=== PATIENT | male | born 1965 | race Caucasian/White ===

== ENCOUNTER 2017-04-07 08:57 | Day surgery (SDC) | payer OTHER ==
[~2017-04-07 08:57] MED LIST: Lactated Ringers 1,000 ML IV SCH; Sodium Chloride 0.9% 10 ML Syringe FLUSH PRN
[2017-04-07] MEDS ORDERED: Lactated Ringers 1,000 ML IV SCH (09:00)
[2017-04-07] MEDS ORDERED: Sodium Chloride 0.9% 10 ML Syringe FLUSH PRN (09:00)
[2017-04-07] MEDS ORDERED: ceFAZolin 2 GM in Premix Bag 1 BAG IV ONE (10:00)
[2017-04-07] MEDS ORDERED: Lidocaine 2% 100 MG/5 ML Syringe IVPUSH ONE (11:00)
[2017-04-07] MEDS ORDERED: Midazolam 1 MG/ML 2 ML SDV IV ONE (11:00)
[2017-04-07] MEDS ORDERED: fentaNYL 100 MCG/2 ML SDV IV ONE (11:00)
[2017-04-07] MEDS ORDERED: Ketorolac 30 MG/ML SDV IVPUSH ONE (11:00)
[2017-04-07] MEDS ORDERED: Atropine 0.4 MG/ML SDV IVPUSH ONE (11:00)
[2017-04-07] MEDS ORDERED: ePHEDrine 50 MG/ML SDV IV ONE (11:00)
[2017-04-07] MEDS ORDERED: Propofol 200 MG/20 ML SDV IV ONE (11:00)
[2017-04-07] MEDS ORDERED: Ondansetron 4 MG/2 ML SDV IVPUSH ONE (11:00)
[2017-04-07] MEDS ORDERED: Rocuronium 50 MG/5 ML Vial IV ONE (11:00)
[2017-04-07] MEDS ORDERED: Neostigmine Methylsulfate 1 MG/ML 5 ML Syringe IV ONE (11:00)
[2017-04-07] MEDS ORDERED: Lactated Ringers 1,000 ML IV ONE (11:00)
[2017-04-07] MEDS ORDERED: HYDROmorphone 2 MG/ML SDV IV ONE (11:00)
[2017-04-07] MEDS ORDERED: Bupivacaine 0.5%/EPINEPHrine 1:200,000 50 ML MDV ONE (11:25)
[2017-04-07] MEDS ORDERED: ceFAZolin 1 GM Vial ONE (11:45)
--- NOTE | 2017-04-07 12:26 | HP ---
ADMISSION DATE: 04/07/2017 HISTORY OF PRESENT ILLNESS: This 51-year-old male presents for a repair of a ventral incisional hernia. He underwent a colon resection in 2007 for cancer. There has been no evidence of cancer recurrence, but the patient has been developing some symptoms related to bowel involvement with this hernia. With these symptoms, he now wishes to have this repaired. PAST MEDICAL HISTORY: Also includes diagnosis of hypertension. CURRENT MEDICATIONS: Include lisinopril/hydrochlorothiazide 10/12.5 daily, pravastatin 40 mg a day, Flexeril p.r.n., and metformin 500 mg daily. ALLERGIES: He is allergic to amoxicillin and valsartan. SOCIAL HISTORY: He does not smoke. FAMILY HISTORY: Unremarkable. REVIEW OF SYSTEMS: Shows that recently he has been feeling well except for some intermittent crampy abdominal pain related to the bowel involvement with the hernia and also a more consistent feeling of early satiety. PHYSICAL EXAMINATION: VITAL SIGNS: Temperature is 98.6, pulse 64, blood pressure is 137/90, weight is 266 pounds. GENERAL: The patient is an adult male. He is currently in no acute distress. HEENT: Head is normocephalic. There is no scleral icterus. There are no cervical masses. No carotid bruits are heard. HEART: Regular without murmur. LUNGS: Clear. Breath sounds are equal. There is no wheezing. ABDOMEN: Soft. There are no palpable masses. No hepatic or splenic enlargement. No tenderness. The patient does have diffuse weakness of the midline fascia underneath his midline surgical incision. EXTREMITIES: Show no edema or calf tenderness. IMPRESSION: 1. Ventral incisional hernia with history of bowel involvement. 2. Hypertension. PLAN: Laparoscopic repair of ventral incisional hernia. INFORMED CONSENT: I have discussed carefully on multiple occasions the proposed operative procedure with this patient. I reviewed with him the indications and the options of repair, both open and laparoscopic. I have also discussed the risks of these procedures as well as the anticipated recovery. The patient has decided he would like to proceed with an attempted laparoscopic repair of this ventral hernia. He has been advised that there is a possibility that this still may need to be converted to an open repair. He appears to understand the discussion. His questions were answered and he agrees to proceed today. /[id number] TORY/WILLIAN
--- NOTE | 2017-04-07 13:52 | PCM.OPNOTE ---
- General Post-Op/Procedure Note Date of Surgery/Procedure: 04/07/17 Operative Procedure(s): Laproscopic Repair of Incarcerated Ventral Incisional Hernia. Lysis of Intra-abdominal adhesions Findings: Incarcerated Ventral Incisional Hernia and extensive small bowel adhesions Pre Op Diagnosis: Ventral Incisional Hernia Post-Op Diagnosis: Incarcerated Ventral Incisional Hernia. Intra-abdominal Adhesions Anesthesia Technique: General ET tube Primary Surgeon: Waqas Casanova School Guard: Mundo West Pathology: none Output, Urine Amount: 0 EBL in mLs: 25 Complications: None Condition: Good
[2017-04-07] MEDS ORDERED: Acetaminophen/HYDROcodone 325-5 MG Tab PO PRN ×2 (13:59)
[2017-04-07] MEDS ORDERED: Ondansetron 4 MG/2 ML SDV IVPUSH PRN (13:59)
[2017-04-07] MEDS: Morphine 2 MG/ML Syringe IVPUSH PRN ×2 (17:21→18:21)
[2017-04-07] MEDS: Lactated Ringers 1,000 ML IV SCH (17:34)
[2017-04-07] MEDS: Ketorolac 30 MG/ML SDV IVPUSH SCH ×2 (18:12→23:50)
[2017-04-08] MEDS: Lactated Ringers 1,000 ML IV SCH (04:08)
[2017-04-08] MEDS: Ketorolac 30 MG/ML SDV IVPUSH SCH (05:49)
[2017-04-08] MEDS ORDERED: Hydrochlorothiazide/Lisinopril 25-20 MG Tab PO SCH (09:00)
[2017-04-08] MEDS ORDERED: metFORMIN 500 MG Tab.ER PO SCH (09:00)
--- NOTE | 2017-04-08 09:24 | PCM.SURGPN ---
- General Info Date of Service: 04/08/17 Date of Surgery/Procedure: 04/07/17 POD#: 1 Post-Op Diagnosis: Incarcerated Ventral Incisional Hernia Functional Status: Reports: ambulating, urinating (initially had urinary retention but was able to void large amount at about midnight and now is voiding satisfactorily) - Review of Systems Pulmonary: Reports: no symptoms Gastrointestinal: Reports: Other (appetite still poor and only taking small amounts PO). Denies: Nausea, Vomiting Musculoskeletal: Reports: no symptoms. Denies: leg pain - Patient Data Vitals - most recent: Last Vital Signs Temp 98.1 F 04/08/17 08:30 Pulse 75 04/08/17 04:00 Resp 18 04/08/17 08:30 BP 130/83 04/08/17 08:55 Pulse Ox 94 L 04/08/17 08:30 Weight - most recent: 267 lb I&O - last 24 hours: Intake & Output 04/07/17 04/08/17 04/08/17 22:59 06:59 14:59 Intake Total 992 1057 Output Total 0 2350 Balance 992 -1293 Lab Results last 24 hrs: Laboratory Results - last 24 hr 04/07/17 Range/Units 10:12 POC Glucose 103 (80-116) mg/dL Med Orders - Current: Current Medications Hydrocodone Bitart/Acetaminophen ([place] 325-5 Mg) 1 tab PO Q4H PRN PRN Reason: Pain (mild 1-3) Last Admin: 04/08/17 08:56 Dose: 1 tab Hydrocodone Bitart/Acetaminophen ([place] 325-5 Mg) 2 tab PO Q4H PRN PRN Reason: Pain (moderate 4-6) Lisinopril/HCTZ (Lisinopril-Hctz 20-25 Mg) 1 tab PO DAILY [facility] Last Admin: 04/08/17 08:55 Dose: 1 tab Lactated Ringer's (Ringers, Lactated) 1,000 mls @ 50 mls/hr IV ASDIRECTED JERRY Last Admin: 04/08/17 04:08 Dose: 100 mls/hr Ketorolac Tromethamine (Toradol) 10 mg PO Q6H [facility] Stop: 04/13/17 09:31 Metformin HCl (Glucophage Xr) 500 mg PO DAILY [facility] Last Admin: 04/08/17 08:55 Dose: 500 mg Morphine Sulfate (Morphine) 2 mg IVPUSH Q1H PRN PRN Reason: Pain (severe 7-10) Last Admin: 04/07/17 18:21 Dose: 2 mg Ondansetron HCl (Zofran) 4 mg IVPUSH Q6H PRN PRN Reason: Nausea/Vomiting Last Admin: 04/07/17 18:19 Dose: 4 mg Sodium Chloride (Saline Flush) 10 ml FLUSH ASDIRECTED PRN PRN Reason: Keep Vein Open Discontinued Medications Bupivacaine HCl/Epinephrine Bitart ([place] 0.5%/Epinephrine 1:200,000) 20 ml .XX .STK-MED ONE Stop: 04/07/17 11:26 Last Admin: 04/07/17 11:25 Dose: 20 ml Cefazolin Sodium (Ancef) 1 gm .XX .STK-MED ONE Stop: 04/07/17 11:46 Last Admin: 04/07/17 11:45 Dose: 1 gm Lactated Ringer's (Ringers, Lactated) 1,000 mls @ 125 mls/hr IV ASDIRECTED [facility] Cefazolin Sodium/Dextrose 2 gm (/ Premix) 50 mls @ 100 mls/hr IV ONETIME ONE Stop: 04/07/17 10:29 Last Admin: 04/07/17 11:03 Dose: 100 mls/hr Lactated Ringer's (Ringers, Lactated) 1,000 mls @ 125 mls/hr IV ASDIRECTED [facility] Last Admin: 04/07/17 09:53 Dose: 125 mls/hr Cefazolin Sodium 1,000 mg/ (Sodium Chloride) 50 mls @ 200 mls/hr IV Q8H [facility] Stop: 04/08/17 09:14 Last Admin: 04/08/17 08:55 Dose: 200 mls/hr Ketorolac Tromethamine (Toradol) 30 mg IVPUSH Q6H [facility] Last Admin: 04/08/17 05:49 Dose: 30 mg Sodium Chloride (Saline Flush) 10 ml FLUSH ASDIRECTED PRN PRN Reason: Keep Vein Open - Exam Wound/Incisions: healing well General: alert, oriented Lungs: Normal respiratory effort Extremities: no edema, no tenderness/swelling - Problem List Review Problem List Initiated/Reviewed/Updated: Yes - My Orders Last 24 Hours: Active Orders 24 hr Category Date Time Status Patient Status [ADT] Routine ADT 04/07/17 14:00 Active Ambulate [RC] QSHIFT Care 04/07/17 13:59 Active Antiembolic Devices [RC] QSHIFT Care 04/07/17 14:03 Active Intake and Output [RC] 06,14,22 Care 04/07/17 14:01 Active Oxygen Therapy [RC] PRN Care 04/07/17 14:00 Active RT Incentive Spirometry [RC] Q1HWA Care 04/07/17 13:59 Active VTE/DVT Education [RC] Click to Edit Care 04/07/17 14:03 Active Vital Signs [RC] 00,04,08,12,16,20 Care 04/07/17 14:00 Active Full Liquid Diet [DIET] Diet 04/08/17 Breakfast Ordered Acetaminophen/HYDROcodone [[place] 325-5 MG] Med 04/07/17 13:59 Active 1 tab PO Q4H PRN Acetaminophen/HYDROcodone [[place] 325-5 MG] Med 04/07/17 13:59 Active 2 tab PO Q4H PRN Hydrochlorothiazide/Lisinopril [Lisinopril-HCTZ 20-25 Med 04/08/17 09:00 Active MG] 1 tab PO DAILY Ketorolac [Toradol] Med 04/08/17 09:30 Ordered 10 mg PO Q6H Lactated Ringers [Ringers, Lactated] 1,000 ml Med 04/07/17 14:00 Active IV ASDIRECTED Morphine Med 04/07/17 13:59 Active 2 mg IVPUSH Q1H PRN Ondansetron [Zofran] Med 04/07/17 13:59 Active 4 mg IVPUSH Q6H PRN Sodium Chloride 0.9% [Saline Flush] Med 04/07/17 09:00 Active 10 ml FLUSH ASDIRECTED PRN metFORMIN [Glucophage XR] Med 04/08/17 09:00 Active 500 mg PO DAILY DVT/VTE Prophylaxis Reflex [OM.PC] Per Unit Routine Oth 04/07/17 14:03 Ordered Peripheral IV Insertion Adult [OM.PC] Routine Oth 04/07/17 09:00 Ordered Sequential Compression Device [OM.PC] Routine Oth 04/07/17 09:00 Ordered Sequential Compression Device [OM.PC] Routine Oth 04/07/17 13:59 Ordered Medication Orders Hydrocodone Bitart/Acetaminophen ([place] 325-5 Mg) 1 tab PO Q4H PRN PRN Reason: Pain (mild 1-3) Last Admin: 04/08/17 08:56 Dose: 1 tab Hydrocodone Bitart/Acetaminophen ([place] 325-5 Mg) 2 tab PO Q4H PRN PRN Reason: Pain (moderate 4-6) Lisinopril/HCTZ (Lisinopril-Hctz 20-25 Mg) 1 tab PO DAILY [facility] Last Admin: 04/08/17 08:55 Dose: 1 tab Lactated Ringer's (Ringers, Lactated) 1,000 mls @ 50 mls/hr IV ASDIRECTED [facility] Last Admin: 04/08/17 04:08 Dose: 100 mls/hr Infusion: 04/08/17 03:34 Dose: 100 mls/hr Admin: 04/07/17 17:34 Dose: 100 mls/hr Ketorolac Tromethamine (Toradol) 10 mg PO Q6H [facility] Stop: 04/13/17 09:31 Metformin HCl (Glucophage Xr) 500 mg PO DAILY [facility] Last Admin: 04/08/17 08:55 Dose: 500 mg Morphine Sulfate (Morphine) 2 mg IVPUSH Q1H PRN PRN Reason: Pain (severe 7-10) Last Admin: 04/07/17 18:21 Dose: 2 mg Admin: 04/07/17 17:21 Dose: 2 mg Ondansetron HCl (Zofran) 4 mg IVPUSH Q6H PRN PRN Reason: Nausea/Vomiting Last Admin: 04/07/17 18:19 Dose: 4 mg Sodium Chloride (Saline Flush) 10 ml FLUSH ASDIRECTED PRN PRN Reason: Keep Vein Open - Assessment Assessment (Free Text/Narrative):: POD #1 Repair Ventral Incisional Hernia Still having a lot of pain and poor oral intake - Plan Plan (Free Text/Narrative):: Slow IV Trial of diet advancement change torodal to PO
[2017-04-08] MEDS ORDERED: Ketorolac 10 MG Tab PO SCH (12:00)
--- NOTE | 2017-04-08 15:28 | PCM.PN ---
- General Info Date of Service: 04/08/17 Admission Dx/Problem (Free Text): Laproscopic Repair of Incarcerated Ventral Incisional Hernia Functional Status: Reports: pain controlled (now improved and tolerating well on oral agents), tolerating diet (tolerating light diet well) - Review of Systems Gastrointestinal: Denies: Nausea, Vomiting Genitourinary: Reports: other (voiding well) - Patient Data Vitals - most recent: Last Vital Signs Temp 97.7 F 04/08/17 11:42 Pulse 78 04/08/17 09:00 Resp 18 04/08/17 11:42 BP 128/78 04/08/17 11:42 Pulse Ox 94 L 04/08/17 11:42 Weight - most recent: 267 lb I&O - last 24 hours: Intake & Output 04/08/17 04/08/17 04/08/17 06:59 14:59 22:59 Intake Total 1057 860 Output Total 2229 6815 Balance -1292 Med Orders - Current: Current Medications Hydrocodone Bitart/Acetaminophen ([place] 325-5 Mg) 1 tab PO Q4H PRN PRN Reason: Pain (mild 1-3) Last Admin: 04/08/17 08:56 Dose: 1 tab Hydrocodone Bitart/Acetaminophen ([place] 325-5 Mg) 2 tab PO Q4H PRN PRN Reason: Pain (moderate 4-6) Lisinopril/HCTZ (Lisinopril-Hctz 20-25 Mg) 1 tab PO DAILY [facility] Last Admin: 04/08/17 08:55 Dose: 1 tab Lactated Ringer's (Ringers, Lactated) 1,000 mls @ 50 mls/hr IV ASDIRECTED [facility] Last Admin: 04/08/17 04:08 Dose: 100 mls/hr Ketorolac Tromethamine (Toradol) 10 mg PO Q6H [facility] Stop: 04/13/17 12:01 Last Admin: 04/08/17 11:51 Dose: 10 mg Metformin HCl (Glucophage Xr) 500 mg PO DAILY [facility] Last Admin: 04/08/17 08:55 Dose: 500 mg Morphine Sulfate (Morphine) 2 mg IVPUSH Q1H PRN PRN Reason: Pain (severe 7-10) Last Admin: 04/07/17 18:21 Dose: 2 mg Ondansetron HCl (Zofran) 4 mg IVPUSH Q6H PRN PRN Reason: Nausea/Vomiting Last Admin: 04/07/17 18:19 Dose: 4 mg Sodium Chloride (Saline Flush) 10 ml FLUSH ASDIRECTED PRN PRN Reason: Keep Vein Open Discontinued Medications Bupivacaine HCl/Epinephrine Bitart (Marcaine 0.5%/Epinephrine 1:200,000) 20 ml .XX .STK-MED ONE Stop: 04/07/17 11:26 Last Admin: 04/07/17 11:25 Dose: 20 ml Cefazolin Sodium (Ancef) 1 gm .XX .STK-MED ONE Stop: 04/07/17 11:46 Last Admin: 04/07/17 11:45 Dose: 1 gm Lactated Ringer's (Ringers, Lactated) 1,000 mls @ 125 mls/hr IV ASDIRECTED [facility] Cefazolin Sodium/Dextrose 2 gm (/ Premix) 50 mls @ 100 mls/hr IV ONETIME ONE Stop: 04/07/17 10:29 Last Admin: 04/07/17 11:03 Dose: 100 mls/hr Lactated Ringer's (Ringers, Lactated) 1,000 mls @ 125 mls/hr IV ASDIRECTED [facility] Last Admin: 04/07/17 09:53 Dose: 125 mls/hr Cefazolin Sodium 1,000 mg/ (Sodium Chloride) 50 mls @ 200 mls/hr IV Q8H [facility] Stop: 04/08/17 09:14 Last Admin: 04/08/17 08:55 Dose: 200 mls/hr Ketorolac Tromethamine (Toradol) 30 mg IVPUSH Q6H [facility] Last Admin: 04/08/17 05:49 Dose: 30 mg Sodium Chloride (Saline Flush) 10 ml FLUSH ASDIRECTED PRN PRN Reason: Keep Vein Open - Exam Abdomen: soft Wound/Incisions: healing well, no drainage. No: erythema - Problem List Review Problem List Initiated/Reviewed/Updated: Yes - My Orders Last 24 Hours: My Active Orders 04/08/17 09:00 Hydrochlorothiazide/Lisinopril [Lisinopril-HCTZ 20-25 MG] 1 tab PO DAILY metFORMIN [Glucophage XR] 500 mg PO DAILY 04/08/17 12:00 Ketorolac [Toradol] 10 mg PO Q6H 04/08/17 15:25 Ready for Discharge [RC] PER UNIT ROUTINE 04/08/17 Breakfast Full Liquid Diet [DIET] - Assessment Assessment:: Doing well post op hernia repair - Plan Plan:: Discharge RTC 6 days
[2017-04-08 16:22] VITALS: BP 141/84
--- NOTE | 2017-04-10 10:40 | OR ---
DATE OF OPERATION: 04/07/2017 SURGEON: Waqas Casanova MD PROMOTIONS ASSISTANT: Mundo West MD. [employer] Supervisor necessary for help with retraction and dissection, as well as efficiency. PREOPERATIVE DIAGNOSIS: Ventral incisional hernia. POSTOPERATIVE DIAGNOSES: Incarcerated ventral incisional hernia and intraabdominal adhesions. OPERATION PERFORMED: Laparoscopic repair of incarcerated ventral incisional hernia and lysis of intraabdominal adhesions. INDICATIONS FOR SURGERY: This 51-year-old male, who has had a previous colon resection for carcinoma 9 years ago, has developed a hernia along his incision which has some small bowel involvement which is symptomatic. He comes now for elective repair. FINDINGS: In the upper abdomen to the left of the midline, the patient has a distinct fascial defect approximately 5 cm in size. Incarcerated in this defect is a loop of small bowel, which is causing some kinking of the bowel but does not appear to have caused any vascular compromise. There are extensive adhesions of small bowel to the anterior abdominal wall along the midline in the upper abdomen and many of these adhesions are dense. The bowel, however, appears of good quality. No other intraabdominal lesions are seen, specifically no evidence of metastatic disease was identified. In addition to the distinct defect to the left of the midline, the patient has some generalized weakness along the midline of the incision, including an another diffuse weakening at the level of the umbilicus. NARRATIVE: The patient was taken to the operating room. He was given general endotracheal anesthesia. The abdomen was sterilely prepped and draped. The abdominal cavity was entered laparoscopically via an incision in the right upper quadrant, under direct visualization using a Visiport trocar and under direct visualization of the laparoscopic camera. Once peritoneal cavity had been safely entered, pneumoperitoneum to a pressure of 15 mmHg was achieved with carbon dioxide. A 5 mm trocar was then placed in the right lower quadrant and another 5 mm trocar was placed under direct visualization in the left lower quadrant. These areas could be visualized, but the left upper quadrant was obscured by the densely adherent small bowel. Prolonged dissection was then taken, estimated at over 1 hour, to sharply dissect the small bowel off the anterior abdominal wall. This was performed using careful sharp and blunt dissection, all the while preserving the small bowel, and there was no evidence of any injury to this small bowel during this dissection. The dissection was especially tedious in the area of the hernia, where a loop of small bowel was incarcerated in the hernia itself. But with careful traction and sharp dissection, eventually all the bowel was able to be freed from the anterior abdominal wall and assurance was made of no point of obstruction. After assessing the size and location of the hernia and fascial defects, a laparoscopic piece of Composix mesh is selected measuring 10 x 8 inches in size. Retraction sutures were placed on the four axes of the mesh, and the mesh was soaked in Ancef and saline solution. The mesh was then placed intra-abdominally and unfolded and positioned by bringing the four axes sutures out through the abdominal wall holding the mesh in position, providing good coverage over the left-sided hernia defect, as well as the midline incision from xiphoid to the lower mid abdomen. Once in good position, the mesh was secured to the anterior abdominal wall with closely spaced outer row of absorbable tacks placed around the periphery of the mesh. A more widely spaced inner row and central tack are also used to reinforce the mesh attachment to the anterior abdominal wall and this secured the mesh providing good coverage with adequate margins over all the hernia defects and areas of fascial weakness. Examination showed no evidence of any complications. The fascia of the largest trocar site was closed with a 0 Vicryl suture using a port closure device. Pneumoperitoneum was evacuated and all the trocars were removed under direct visualization. The incisions were irrigated, and then the skin incisions are approximated with interrupted 4-0 Vicryl in a subcuticular stitch, Steri-Strips and Benzoin. Antibiotic ointment and sterile dressings were placed. The patient was then awakened, extubated, and taken from the operating room in satisfactory condition. ESTIMATED BLOOD LOSS: 25 mL. COMPLICATIONS: None. PROGNOSIS: Good. /[id number] 2015 TORY/WILLIAN
== END 2017-04-08 16:40 | disposition home or self-care (01) ==
LOC: FB.SDS 08:57 → FB.MS 14:52 → FB.SDS 04-08 16:40
PROVIDERS: ATTEND Surgery
DX: K43.0 Incisional hernia with obstruction, without gangrene (principal); I10 Essential (primary) hypertension; Z85.038 Personal history of other malignant neoplasm of large intestine; Z90.49 Acquired absence of other specified parts of digestive tract; Z88.1 Allergy status to other antibiotic agents; Z88.8 Allergy status to other drugs, medicaments and biological substances; Z79.899 Other long term (current) drug therapy
CPT/HCPCS: 49655; 82962; 94150; A9270; C1781; J0131; J0461; J0690; J1170; J1885; J2250; J2270; J2405; J2704; J3010; J7050; J7120

== ENCOUNTER 2017-04-19 21:25 | Observation (INO) | payer OTHER ==
[2017-04-19] MEDS ORDERED: Sodium Chloride 0.9% 10 ML Syringe FLUSH PRN (22:29)
[2017-04-19] MEDS ORDERED: Morphine 4 MG/ML Syringe IVPUSH ONE (22:30)
[2017-04-19] MEDS ORDERED: Ondansetron 4 MG/2 ML SDV IVPUSH ONE (22:30)
[2017-04-19] MEDS ORDERED: Ketorolac 30 MG/ML SDV IVPUSH ONE (22:30)
--- NOTE | 2017-04-19 22:39 | EDM.PDOC ---
ED HPI GENERAL MEDICAL PROBLEM - General Chief Complaint: Gastrointestinal Problem Stated Complaint: THROWING UP AND UNABLE TO EAT Time Seen by Provider: 04/19/17 22:00 Source of Information: Reports: Patient History Limitations: Reports: No Limitations - History of Present Illness INITIAL COMMENTS - FREE TEXT/NARRATIVE: c/o upper abd pain x 2d increasing upper abd pain x 2d, cramping, dec'd appetite, now with N/V tonight, small BMs, does not think he is constipated, not able to work as a [employer], no f/ c/d had 12" colon removed 9y ago for colon cancer, 2w ago on 04/07 he had an incarcerated ventral hernia repaired by Dr Casanova, had done well until 2d ago, has apt with Dr Reid in 2d, "could not wait that long," here with his no other abd surgery had 11 lb wt loss in past 2w emesis is green abdomen Pain Score (Numeric/FACES): 6 - Related Data Allergies Allergy/AdvReac Type Severity Reaction Status Date / Time amoxicillin [Amoxicillin] Allergy Rash Verified 04/19/17 21:42 valsartan [From Diovan] Allergy Rash Verified 04/19/17 21:42 Home Meds: Home Meds Pravastatin Sodium 40 mg PO DAILY 01/18/14 [History] Fluticasone Propionate [Flonase] 1 - 2 sprays NASBOTH DAILY 04/07/17 [History] Hydrochlorothiazide/Lisinopril [Lisinopril-HCTZ 20-25 MG] 1 tab PO DAILY [History] Montelukast [Singulair] 10 mg PO BEDTIME 04/07/17 [History] metFORMIN [Glucophage XR] 500 mg PO DAILY 04/07/17 [History] Hydrocodone/Acetaminophen [[place] 5-325] 1 - 2 tab PO Q4H PRN #20 tablet [Rx] Past Medical History HEENT History: Reports: Allergic Rhinitis Cardiovascular History: Reports: High Cholesterol, Hypertension Neurological History: Reports: Neuropathy, Peripheral Endocrine/Metabolic History: Reports: Diabetes, Type I, Obesity/BMI 30+ Oncologic (Cancer) History: Reports: Colon - Past Surgical History HEENT Surgical History: Reports: Oral Surgery GI Surgical History: Reports: Colon, Colonoscopy, Hernia Repair/Other Social & Family History - Family History Family Medical History: Unobtainable - Tobacco Use Smoking Status *Q: Never Smoker Second Hand Smoke Exposure: No - Caffeine Use Caffeine Use: Reports: Coffee - Alcohol Use Days Per Week of Alcohol Use: 1 - Recreational Drug Use Recreational Drug Use: No ED ROS GENERAL - Review of Systems Review Of Systems: See Below Constitutional: Reports: No Symptoms HEENT: Reports: No Symptoms Respiratory: Reports: No Symptoms Cardiovascular: Reports: No Symptoms Endocrine: Reports: No Symptoms GI/Abdominal: Reports: Abdominal Pain, Nausea, Vomiting : Reports: No Symptoms Musculoskeletal: Reports: No Symptoms Skin: Reports: No Symptoms Neurological: Reports: No Symptoms Psychiatric: Reports: No Symptoms Hematologic/Lymphatic: Reports: No Symptoms Immunologic: Reports: No Symptoms ED EXAM, GI/ABD - Physical Exam Exam: See Below Exam Limited By: No Limitations General Appearance: Alert, WD/WN, Moderate Distress Nose: Normal Inspection, Normal Mucosa, No Blood Throat/Mouth: Normal Inspection, Normal Lips, Normal Teeth, Normal Gums, Normal Oropharynx, Normal Voice, No Airway Compromise Head: Atraumatic, Normocephalic Neck: Normal Inspection, Supple, Non-Tender, Full Range of Motion Respiratory/Chest: No Respiratory Distress, Lungs Clear, Normal Breath Sounds, No Accessory Muscle Use, Chest Non-Tender Cardiovascular: Normal Peripheral Pulses, Regular Rate, Rhythm, No Edema, No Gallop, No Murmur, No Rub GI/Abdominal Exam: Other (moderate distention, tender to light palpation across upper half of abd, no guard, no rebound, BS present all quadrants, mainly short rushes every 10 seconds, back no CVAT) Back Exam: Normal Inspection, Full Range of Motion, NT Extremities: Normal Inspection, Normal Range of Motion, Non-Tender, Normal Capillary Refill, No Pedal Edema Neurological: Alert, Oriented, CN II-XII Intact, Normal Cognition, No Motor/ Sensory Deficits Psychiatric: Normal Affect, Normal Mood Skin Exam: Warm, Dry, Intact, Normal Color, No Rash Lymphatic: No Adenopathy Course - Vital Signs Last Recorded V/S: Last Vital Signs Temp 36.4 C 04/19/17 21:25 Pulse 71 04/19/17 21:25 Resp 16 04/19/17 21:25 BP 127/80 04/19/17 21:25 Pulse Ox 100 04/19/17 21:25 - Orders/Labs/Meds Orders: Active Orders 24 hr Category Date Time Status Admission Status [Patient Status] [ADT] Routine ADT 04/20/17 01:10 Active Abdomen Series w Chest 1V [CR] Stat Exams 04/19/17 23:12 Taken NG Tube Placement [CR] Stat Exams 04/20/17 00:07 Ordered LIPASE [REF] Stat Lab 04/19/17 22:50 Received Sodium Chloride 0.9% [Normal Saline] 1,000 ml Med 04/19/17 22:45 Active IV ASDIRECTED Sodium Chloride 0.9% [Normal Saline] 1,000 ml Med 04/20/17 00:30 Active IV ASDIRECTED Sodium Chloride 0.9% [Saline Flush] Med 04/19/17 22:29 Active 10 ml FLUSH ASDIRECTED PRN Saline Lock Insert [OM.PC] Routine Oth 04/19/17 22:29 Ordered Medication Orders Sodium Chloride (Normal Saline) 1,000 mls @ 999 mls/hr IV ASDIRECTED JERRY Last Admin: 04/19/17 23:26 Dose: 999 mls/hr Sodium Chloride (Normal Saline) 1,000 mls @ 999 mls/hr IV ASDIRECTED JERRY Last Admin: 04/20/17 00:33 Dose: 999 mls/hr Sodium Chloride (Saline Flush) 10 ml FLUSH ASDIRECTED PRN PRN Reason: Keep Vein Open Last Admin: 04/19/17 22:51 Dose: 10 ml Labs: Laboratory Tests 04/19/17 04/19/17 04/19/17 Range/Units 22:50 22:50 22:50 WBC 13.7 H (4.5-12.0) X10-3/uL RBC 5.77 H (4.30-5.75) x10(6)uL Hgb 16.5 H (11.5-15.5) g/dL Hct 49.5 (30.0-51.3) % MCV 85.7 (80-96) fL MCH 28.7 (27.7-33.6) pg MCHC 33.4 (32.2-35.4) g/dL RDW 12.4 (11.5-15.5) % Plt Count 373 H (125-369) X10(3)uL MPV 7.7 (7.4-10.4) fL Neut % (Auto) 78.1 (46-82) % Lymph % (Auto) 11.8 L (13-37) % [place] % (Auto) 6.0 (4-12) % Eos % (Auto) 3 (1.0-5.0) % Baso % (Auto) 1 (0-2) % Neut # (Auto) 10.7 H (1.6-8.3) # Lymph # (Auto) 1.6 (0.6-5.0) # [place] # (Auto) 0.8 (0.0-1.3) # Eos # (Auto) 0.4 (0.0-0.8) # Baso # (Auto) 0.2 (0.0-0.2) # Sodium 138 (135-145) mmol/L Potassium 4.2 (3.5-5.3) mmol/L Chloride 100 (100-110) mmol/L Carbon Dioxide 29 (23-29) mmol/L BUN 22 H (5-20) mg/dL Creatinine 1.1 (0.6-1.3) mg/dL Est Cr Clr Drug Dosing 87.77 mL/min Estimated GFR (MDRD) > 60 (>60) BUN/Creatinine Ratio 20.0 (9-20) Glucose 127 H (80-116) mg/dL Lactic Acid (0.5-2.2) mmol/L Calcium 9.4 (8.6-10.2) mg/dL Total Bilirubin 0.4 (0.1-1.3) mg/dL AST 22 (5-27) IU/L ALT 35 H (14-26) IU/L Alkaline Phosphatase 121 H (56-112) IU/L Lactate Dehydrogenase 136 (120-160) IU/L Creatine Kinase 164 H (60-160) IU/L Troponin I (0.02-0.06) NG/ML C-Reactive Protein 6.8 H* (0.0-1.0) mg/dL Total Protein 7.4 (6.0-8.0) g/dL Albumin 3.9 (3.5-5.2) g/dL Globulin 3.5 g/dL Albumin/Globulin Ratio 1.1 Amylase (28-100) U/L Urine Color (YELLOW) Urine Appearance (CLEAR) Urine pH (5.0-6.5) Ur Specific [place] (1.010-1.025) Urine Protein (NEGATIVE) mg/dL Urine Glucose (UA) (NEGATIVE) mg/dL Urine Ketones (NEGATIVE) mg/dL Urine Occult Blood (NEGATIVE) Urine Nitrite (NEGATIVE) Urine Bilirubin (NEGATIVE) Urine Urobilinogen (NEGATIVE) mg/dL Ur Leukocyte Esterase (NEGATIVE) Urine RBC (0) Urine WBC (0) Ur Squamous Epith Cells (NS,R,O) Urine Bacteria (NS) Urine Mucus (NS) 04/19/17 04/19/17 04/19/17 Range/Units 22:50 22:50 22:50 WBC (4.5-12.0) X10-3/uL RBC (4.30-5.75) x10(6)uL Hgb (11.5-15.5) g/dL Hct (30.0-51.3) % MCV (80-96) fL MCH (27.7-33.6) pg MCHC (32.2-35.4) g/dL RDW (11.5-15.5) % Plt Count (125-369) X10(3)uL MPV (7.4-10.4) fL Neut % (Auto) (46-82) % Lymph % (Auto) (13-37) % [place] % (Auto) (4-12) % Eos % (Auto) (1.0-5.0) % Baso % (Auto) (0-2) % Neut # (Auto) (1.6-8.3) # Lymph # (Auto) (0.6-5.0) # [place] # (Auto) (0.0-1.3) # Eos # (Auto) (0.0-0.8) # Baso # (Auto) (0.0-0.2) # Sodium (135-145) mmol/L Potassium (3.5-5.3) mmol/L Chloride (100-110) mmol/L Carbon Dioxide (23-29) mmol/L BUN (5-20) mg/dL Creatinine (0.6-1.3) mg/dL Est Cr Clr Drug Dosing mL/min Estimated GFR (MDRD) (>60) BUN/Creatinine Ratio (9-20) Glucose (80-116) mg/dL Lactic Acid 0.9 (0.5-2.2) mmol/L Calcium (8.6-10.2) mg/dL Total Bilirubin (0.1-1.3) mg/dL AST (5-27) IU/L ALT (14-26) IU/L Alkaline Phosphatase (56-112) IU/L Lactate Dehydrogenase (120-160) IU/L Creatine Kinase (60-160) IU/L Troponin I < 0.01 L (0.02-0.06) NG/ML C-Reactive Protein (0.0-1.0) mg/dL Total Protein (6.0-8.0) g/dL Albumin (3.5-5.2) g/dL Globulin g/dL Albumin/Globulin Ratio Amylase 84 (28-100) U/L Urine Color (YELLOW) Urine Appearance (CLEAR) Urine pH (5.0-6.5) Ur Specific [place] (1.010-1.025) Urine Protein (NEGATIVE) mg/dL Urine Glucose (UA) (NEGATIVE) mg/dL Urine Ketones (NEGATIVE) mg/dL Urine Occult Blood (NEGATIVE) Urine Nitrite (NEGATIVE) Urine Bilirubin (NEGATIVE) Urine Urobilinogen (NEGATIVE) mg/dL Ur Leukocyte Esterase (NEGATIVE) Urine RBC (0) Urine WBC (0) Ur Squamous Epith Cells (NS,R,O) Urine Bacteria (NS) Urine Mucus (NS) 04/20/17 Range/Units 00:15 WBC (4.5-12.0) X10-3/uL RBC (4.30-5.75) x10(6)uL Hgb (11.5-15.5) g/dL Hct (30.0-51.3) % MCV (80-96) fL MCH (27.7-33.6) pg MCHC (32.2-35.4) g/dL RDW (11.5-15.5) % Plt Count (125-369) X10(3)uL MPV (7.4-10.4) fL Neut % (Auto) (46-82) % Lymph % (Auto) (13-37) % [place] % (Auto) (4-12) % Eos % (Auto) (1.0-5.0) % Baso % (Auto) (0-2) % Neut # (Auto) (1.6-8.3) # Lymph # (Auto) (0.6-5.0) # [place] # (Auto) (0.0-1.3) # Eos # (Auto) (0.0-0.8) # Baso # (Auto) (0.0-0.2) # Sodium (135-145) mmol/L Potassium (3.5-5.3) mmol/L Chloride (100-110) mmol/L Carbon Dioxide (23-29) mmol/L BUN (5-20) mg/dL Creatinine (0.6-1.3) mg/dL Est Cr Clr Drug Dosing mL/min Estimated GFR (MDRD) (>60) BUN/Creatinine Ratio (9-20) Glucose (80-116) mg/dL Lactic Acid (0.5-2.2) mmol/L Calcium (8.6-10.2) mg/dL Total Bilirubin (0.1-1.3) mg/dL AST (5-27) IU/L ALT (14-26) IU/L Alkaline Phosphatase (56-112) IU/L Lactate Dehydrogenase (120-160) IU/L Creatine Kinase (60-160) IU/L Troponin I (0.02-0.06) NG/ML C-Reactive Protein (0.0-1.0) mg/dL Total Protein (6.0-8.0) g/dL Albumin (3.5-5.2) g/dL Globulin g/dL Albumin/Globulin Ratio Amylase (28-100) U/L Urine Color Yellow (YELLOW) Urine Appearance Clear (CLEAR) Urine pH 5.0 (5.0-6.5) Ur Specific [place] 1.020 (1.010-1.025) Urine Protein Negative (NEGATIVE) mg/dL Urine Glucose (UA) Normal (NEGATIVE) mg/dL Urine Ketones Negative (NEGATIVE) mg/dL Urine Occult Blood Negative (NEGATIVE) Urine Nitrite Negative (NEGATIVE) Urine Bilirubin Small H (NEGATIVE) Urine Urobilinogen Normal (NEGATIVE) mg/dL Ur Leukocyte Esterase Negative (NEGATIVE) Urine RBC 0-5 (0) Urine WBC 0-5 (0) Ur Squamous Epith Cells Occasional (NS,R,O) Urine Bacteria Few H (NS) Urine Mucus Few H (NS) Meds: Medications Generic Name Dose Route Start Last Admin Trade Name Freq PRN Reason Stop Dose Admin Sodium Chloride 1,000 mls @ 999 mls/hr 04/19/17 22:45 04/19/17 23:26 Normal Saline IV 999 mls/hr ASDIRECTED JERRY Administration Sodium Chloride 1,000 mls @ 999 mls/hr 04/20/17 00:30 04/20/17 00:33 Normal Saline IV 999 mls/hr ASDIRECTED JERRY Administration Sodium Chloride 10 ml 04/19/17 22:29 04/19/17 22:51 Saline Flush FLUSH 10 ml ASDIRECTED PRN Administration Keep Vein Open Discontinued Medications Generic Name Dose Route Start Last Admin Trade Name Freq PRN Reason Stop Dose Admin Ketorolac Tromethamine 30 mg 04/19/17 22:30 04/19/17 23:26 Toradol IVPUSH 04/19/17 22:31 30 mg ONETIME ONE Administration Morphine Sulfate 4 mg 04/19/17 22:30 04/19/17 23:28 Morphine IVPUSH 04/19/17 22:31 4 mg ONETIME ONE Administration Morphine Sulfate 4 mg 04/20/17 00:25 04/20/17 00:33 Morphine IVPUSH 04/20/17 00:26 4 mg ONETIME ONE Administration Ondansetron HCl 4 mg 04/19/17 22:30 04/19/17 23:26 Zofran IVPUSH 04/19/17 22:31 4 mg ONETIME ONE Administration - Re-Assessments/Exams Free Text/Narrative Re-Assessment/Exam: 04/20/17 01:15 KUB with minimal stool, air present in stomach and duodenum, AFL in LUQ, no free air. CRP 6.8 c/w postop, WBC 13.7 c/w pain, lDH 136 and normal, lactic acid 0.9. None acute abd, no immediate concern for necrosis, mainly post-op changes. BUN 22 c/w dehydration. No clinical evidence of infection (78.1 segs, no fever). Only air came back with RYAN, d/w Dr Balbuena who suspects ileus, accepted pt in admission and will see pt in AM. Pt and in agreement. Will d /c NG and give Ativan 1 mg IV to help with sleep. Departure - Departure Time of Disposition: 01:14 Disposition: Admitted As Inpatient 64 Condition: Good Clinical Impression: Ileus - Discharge Information Forms: ED Department Discharge - My Orders Last 24 Hours: My Active Orders 04/19/17 22:29 Sodium Chloride 0.9% [Saline Flush] 10 ml FLUSH ASDIRECTED PRN Saline Lock Insert [OM.PC] Routine 04/19/17 22:45 Sodium Chloride 0.9% [Normal Saline] 1,000 ml IV ASDIRECTED 04/19/17 22:50 LIPASE [REF] Stat 04/19/17 23:12 Abdomen Series w Chest 1V [CR] Stat 04/20/17 00:07 NG Tube Placement [CR] Stat 04/20/17 00:30 Sodium Chloride 0.9% [Normal Saline] 1,000 ml IV ASDIRECTED 04/20/17 01:10 Admission Status [Patient Status] [ADT] Routine - Assessment/Plan Last 24 Hours: My Active Orders 04/19/17 22:29 Sodium Chloride 0.9% [Saline Flush] 10 ml FLUSH ASDIRECTED PRN Saline Lock Insert [OM.PC] Routine 04/19/17 22:45 Sodium Chloride 0.9% [Normal Saline] 1,000 ml IV ASDIRECTED 04/19/17 22:50 LIPASE [REF] Stat 04/19/17 23:12 Abdomen Series w Chest 1V [CR] Stat 04/20/17 00:07 NG Tube Placement [CR] Stat 04/20/17 00:30 Sodium Chloride 0.9% [Normal Saline] 1,000 ml IV ASDIRECTED 04/20/17 01:10 Admission Status [Patient Status] [ADT] Routine
[2017-04-19] MEDS ORDERED: Sodium Chloride 0.9% 1,000 ML IV SCH (22:45)
[2017-04-20] MEDS ORDERED: Morphine 4 MG/ML Syringe IVPUSH ONE (00:25)
[2017-04-20] MEDS ORDERED: Sodium Chloride 0.9% 1,000 ML IV SCH ×2 (00:30→01:30)
[2017-04-20] MEDS ORDERED: LORazepam 2 MG/ML MDV IVPUSH ONE (01:19)
[2017-04-20] MEDS ORDERED: Ondansetron 4 MG/2 ML SDV IVPUSH PRN (01:22)
[2017-04-20] MEDS ORDERED: Morphine 2 MG/ML Syringe IVPUSH PRN (01:22)
--- NOTE | 2017-04-20 07:37 | PCM.PN ---
- General Info Date of Service: 04/20/17 Functional Status: Reports: Other (Feels well this am) - Review of Systems General: Denies: Chills Pulmonary: Reports: No Symptoms Gastrointestinal: Denies: Flatus, Nausea (this am but had N/V last night) Musculoskeletal: Reports: No Symptoms - Patient Data Vitals - most recent: Last Vital Signs Temp 97.5 F 04/20/17 01:58 Pulse 67 04/20/17 01:58 Resp 16 04/20/17 01:58 BP 128/84 04/20/17 01:58 Pulse Ox 96 04/20/17 01:58 Weight - most recent: 255 lb 9.6 oz Lab Results last 24 hrs: Laboratory Results - last 24 hr 04/20/17 04/20/17 Range/Units 06:50 06:50 WBC 14.2 H (4.5-12.0) X10-3/uL RBC 5.32 (4.30-5.75) x10(6)uL Hgb 15.4 (11.5-15.5) g/dL Hct 45.2 (30.0-51.3) % MCV 84.8 (80-96) fL MCH 28.9 (27.7-33.6) pg MCHC 34.1 (32.2-35.4) g/dL RDW 12.6 (11.5-15.5) % Plt Count 384 H (125-369) X10(3)uL MPV 7.7 (7.4-10.4) fL Neut % (Auto) 84.8 H (46-82) % Lymph % (Auto) 6.4 L (13-37) % [place] % (Auto) 6.7 (4-12) % Eos % (Auto) 2 (1.0-5.0) % Baso % (Auto) 0 (0-2) % Neut # (Auto) 12.0 H (1.6-8.3) # Lymph # (Auto) 0.9 (0.6-5.0) # [place] # (Auto) 1.0 (0.0-1.3) # Eos # (Auto) 0.3 (0.0-0.8) # Baso # (Auto) 0.0 (0.0-0.2) # Sodium 138 (135-145) mmol/L Potassium 4.0 (3.5-5.3) mmol/L Chloride 105 D (100-110) mmol/L Carbon Dioxide 26 (23-29) mmol/L BUN 24 H (5-20) mg/dL Creatinine 0.9 (0.6-1.3) mg/dL Est Cr Clr Drug Dosing 107.27 mL/min Estimated GFR (MDRD) > 60 (>60) BUN/Creatinine Ratio 26.7 H (9-20) Glucose 132 H (80-116) mg/dL Calcium 8.4 L (8.6-10.2) mg/dL Med Orders - Current: Current Medications Fluticasone Propionate (Flonase) 0 gm NASBOTH DAILY JERRY Lisinopril/HCTZ (Lisinopril-Hctz 20-25 Mg) 1 tab PO DAILY JERRY Sodium Chloride (Normal Saline) 1,000 mls @ 999 mls/hr IV ASDIRECTED JERRY Last Admin: 04/19/17 23:26 Dose: 999 mls/hr Sodium Chloride (Normal Saline) 1,000 mls @ 999 mls/hr IV ASDIRECTED JERRY Last Admin: 04/20/17 00:33 Dose: 999 mls/hr Sodium Chloride (Normal Saline) 1,000 mls @ 125 mls/hr IV ASDIRECTED [facility] Metformin HCl (Glucophage Xr) 500 mg PO DAILY [facility] Montelukast Sodium (Singulair) 10 mg PO BEDTIME JERRY Morphine Sulfate (Morphine) 2 mg IVPUSH Q2H PRN PRN Reason: Pain Ondansetron HCl (Zofran) 4 mg IVPUSH Q4H PRN PRN Reason: Nausea/Vomiting Last Admin: 04/20/17 04:59 Dose: 4 mg Simvastatin (Zocor) 20 mg PO BEDTIME JERRY Sodium Chloride (Saline Flush) 10 ml FLUSH ASDIRECTED PRN PRN Reason: Keep Vein Open Last Admin: 04/19/17 22:51 Dose: 10 ml Discontinued Medications Ketorolac Tromethamine (Toradol) 30 mg IVPUSH ONETIME ONE Stop: 04/19/17 22:31 Last Admin: 04/19/17 23:26 Dose: 30 mg Lorazepam (Ativan) 1 mg IVPUSH ONETIME ONE Stop: 04/20/17 01:20 Last Admin: 04/20/17 01:43 Dose: 1 mg Morphine Sulfate (Morphine) 4 mg IVPUSH ONETIME ONE Stop: 04/19/17 22:31 Last Admin: 04/19/17 23:28 Dose: 4 mg Morphine Sulfate (Morphine) 4 mg IVPUSH ONETIME ONE Stop: 04/20/17 00:26 Last Admin: 04/20/17 00:33 Dose: 4 mg Ondansetron HCl (Zofran) 4 mg IVPUSH ONETIME ONE Stop: 04/19/17 22:31 Last Admin: 04/19/17 23:26 Dose: 4 mg - Exam General: alert, oriented Lungs: Normal Respiratory Effort GI/Abdominal Exam: Distended (mildly), Tender (mild in LUQ, no guarding). No: Hernia, Mass - Problem List Review Problem List Initiated/Reviewed/Updated: Yes - Assessment Assessment:: Admitted last night with bloating since the previous night and some vomiting. Xrays show few air/fluid levels in LUQ - suspect post op ileus Feels well this am with no nausea and denies pain - Plan Plan:: Will try clear liquids Reglan
[2017-04-20] MEDS: Metoclopramide 10 MG/2 ML SDV IV SCH ×2 (08:47→14:03)
[2017-04-20 08:58] VITALS: BP 127/84
[2017-04-20] MEDS ORDERED: Hydrochlorothiazide/Lisinopril 25-20 MG Tab PO SCH (09:00)
[2017-04-20] MEDS ORDERED: Fluticasone Propionate Nasal Spray 16 GM Bottle NASBOTH SCH (09:00)
[2017-04-20] MEDS ORDERED: metFORMIN 500 MG Tab.ER PO SCH (09:00)
--- NOTE | 2017-04-20 15:23 | PCM.PN ---
- General Info Date of Service: 04/20/17 Functional Status: Reports: Pain Controlled, Tolerating Diet (Liquids well) - Review of Systems Pulmonary: Reports: No Symptoms Gastrointestinal: Reports: Other (Had BM and passing large amounts of flatus). Denies: Abdominal Pain, Nausea, Vomiting - Patient Data Vitals - most recent: Last Vital Signs Temp 97.5 F 04/20/17 01:58 Pulse 81 04/20/17 08:00 Resp 16 04/20/17 08:00 BP 127/84 04/20/17 08:00 Pulse Ox 95 04/20/17 08:00 Weight - most recent: 255 lb 9.6 oz I&O - last 24 hours: Intake & Output 04/20/17 04/20/17 04/20/17 06:59 14:59 22:59 Intake Total 540 Balance 540 Lab Results last 24 hrs: Laboratory Results - last 24 hr 04/20/17 04/20/17 Range/Units 06:50 06:50 WBC 14.2 H (4.5-12.0) X10-3/uL RBC 5.32 (4.30-5.75) x10(6)uL Hgb 15.4 (11.5-15.5) g/dL Hct 45.2 (30.0-51.3) % MCV 84.8 (80-96) fL MCH 28.9 (27.7-33.6) pg MCHC 34.1 (32.2-35.4) g/dL RDW 12.6 (11.5-15.5) % Plt Count 384 H (125-369) X10(3)uL MPV 7.7 (7.4-10.4) fL Neut % (Auto) 84.8 H (46-82) % Lymph % (Auto) 6.4 L (13-37) % [place] % (Auto) 6.7 (4-12) % Eos % (Auto) 2 (1.0-5.0) % Baso % (Auto) 0 (0-2) % Neut # (Auto) 12.0 H (1.6-8.3) # Lymph # (Auto) 0.9 (0.6-5.0) # [place] # (Auto) 1.0 (0.0-1.3) # Eos # (Auto) 0.3 (0.0-0.8) # Baso # (Auto) 0.0 (0.0-0.2) # Sodium 138 (135-145) mmol/L Potassium 4.0 (3.5-5.3) mmol/L Chloride 105 D (100-110) mmol/L Carbon Dioxide 26 (23-29) mmol/L BUN 24 H (5-20) mg/dL Creatinine 0.9 (0.6-1.3) mg/dL Est Cr Clr Drug Dosing 107.27 mL/min Estimated GFR (MDRD) > 60 (>60) BUN/Creatinine Ratio 26.7 H (9-20) Glucose 132 H (80-116) mg/dL Calcium 8.4 L (8.6-10.2) mg/dL Med Orders - Current: Current Medications Fluticasone Propionate (Flonase) 0 gm NASBOTH DAILY [facility] Last Admin: 04/20/17 10:31 Dose: Not Given Lisinopril/HCTZ (Lisinopril-Hctz 20-25 Mg) 1 tab PO DAILY [facility] Last Admin: 04/20/17 08:49 Dose: 1 tab Sodium Chloride (Normal Saline) 1,000 mls @ 999 mls/hr IV ASDIRECTED [facility] Last Admin: 04/19/17 23:26 Dose: 999 mls/hr Sodium Chloride (Normal Saline) 1,000 mls @ 999 mls/hr IV ASDIRECTED [facility] Last Admin: 04/20/17 00:33 Dose: 999 mls/hr Sodium Chloride (Normal Saline) 1,000 mls @ 125 mls/hr IV ASDIRECTED [facility] Last Admin: 04/20/17 10:33 Dose: 125 mls/hr Metformin HCl (Glucophage Xr) 500 mg PO DAILY [facility] Last Admin: 04/20/17 08:49 Dose: 500 mg Metoclopramide HCl (Reglan) 10 mg IV Q6H [facility] Last Admin: 04/20/17 14:03 Dose: 10 mg Montelukast Sodium (Singulair) 10 mg PO BEDTIME [facility] Morphine Sulfate (Morphine) 2 mg IVPUSH Q2H PRN PRN Reason: Pain Ondansetron HCl (Zofran) 4 mg IVPUSH Q4H PRN PRN Reason: Nausea/Vomiting Last Admin: 04/20/17 04:59 Dose: 4 mg Simvastatin (Zocor) 20 mg PO BEDTIME JERRY Sodium Chloride (Saline Flush) 10 ml FLUSH ASDIRECTED PRN PRN Reason: Keep Vein Open Last Admin: 04/19/17 22:51 Dose: 10 ml Discontinued Medications Ketorolac Tromethamine (Toradol) 30 mg IVPUSH ONETIME ONE Stop: 04/19/17 22:31 Last Admin: 04/19/17 23:26 Dose: 30 mg Lorazepam (Ativan) 1 mg IVPUSH ONETIME ONE Stop: 04/20/17 01:20 Last Admin: 04/20/17 01:43 Dose: 1 mg Morphine Sulfate (Morphine) 4 mg IVPUSH ONETIME ONE Stop: 04/19/17 22:31 Last Admin: 04/19/17 23:28 Dose: 4 mg Morphine Sulfate (Morphine) 4 mg IVPUSH ONETIME ONE Stop: 04/20/17 00:26 Last Admin: 04/20/17 00:33 Dose: 4 mg Ondansetron HCl (Zofran) 4 mg IVPUSH ONETIME ONE Stop: 04/19/17 22:31 Last Admin: 04/19/17 23:26 Dose: 4 mg - Exam General: oriented GI/Abdominal Exam: Soft - Problem List Review Problem List Initiated/Reviewed/Updated: Yes - My Orders Last 24 Hours: My Active Orders 04/20/17 08:00 Metoclopramide [Reglan] 10 mg IV Q6H 04/20/17 15:16 Ready for Discharge [RC] PER UNIT ROUTINE 04/20/17 Breakfast Clear Liquid Diet [DIET] - Assessment Assessment:: Post op Ileus - Resolving Now tolerating liquids will with no more nausea - Plan Plan:: Discharge on soft diet Rx Reglan 10mg PO QID f/u in clinic in 6 days
[2017-04-20] MEDS ORDERED: Montelukast 10 MG Tab PO SCH (21:00)
[2017-04-20] MEDS ORDERED: Simvastatin 20 MG Tab PO SCH (21:00)
--- NOTE | 2017-04-24 12:16 | CR ---
INDICATION: Upper abdominal pain. FLAT AND UPRIGHT ABDOMEN WITH PA CHEST: Chest portion of the examination is unremarkable. Abdominal films show stool in the right hemicolon and left hemicolon. There are several loops of small bowel in the left mid abdomen which have some gas and fluid with air-fluid levels, although no dilatation. There are underlying calcifications over the mid to lower pole of the left kidney. I suspect that this finding may represent localized ileus and are possibly related to genitourinary changes with calculi over the left kidney. I do not see any obstructive changes at this time. IMPRESSION: Normal chest. Several calculi over the mid to lower pole of the left kidney with air-fluid levels in several loops of small bowel over the left mid abdomen, which may be secondary to localized ileus. Close clinical correlation would be helpful. CT examination may be helpful to evaluate for renal stone disease also. MTDD
== END 2017-04-20 16:00 | disposition home or self-care (01) ==
LOC: FB.ED 21:25 → FB.MS 04-20 01:10
PROVIDERS: ADMIT Emergency Medicine; ATTEND Surgery
DX: K56.7 Ileus, unspecified (principal); I10 Essential (primary) hypertension; E78.00 Pure hypercholesterolemia, unspecified; E10.9 Type 1 diabetes mellitus without complications; E66.9 Obesity, unspecified; Z68.30 Body mass index [BMI] 30.0-30.9, adult; Z88.1 Allergy status to other antibiotic agents; Z88.8 Allergy status to other drugs, medicaments and biological substances; Z79.899 Other long term (current) drug therapy; Z79.84 Long term (current) use of oral hypoglycemic drugs; Z98.890 Other specified postprocedural states
CPT/HCPCS: 36415; 43752; 74022; 80048; 80053; 81001; 82150; 82550; 82962; 83605; 83615; 83690; 84484; 85025; 86140; 96361; 96374; 96375; 96376; 99285; A9270; G0378; J1885; J2060; J2270; J2405; J2765; J7040; J7050